=== PATIENT | male | born 1945 | race Caucasian/White ===

== ENCOUNTER 2017-01-03 00:19 | Day surgery (SDC) | payer MEDICARE, OTHER ==
[~2017-01-03] VITALS: Ht 190.5 cm; Wt 100.0 kg
[~2017-01-03 00:19] MED LIST: CELE200C PO; DEXL30CA3 PO; IBUP200C11 PO; TRAM50TA2 PO
[2017-01-03 13:46] VITALS: BP 112/75; PULSE 72; RESP 16; O2SAT 97
[2017-01-03] MEDS ORDERED: ESOM40CA41 PO (13:53)
--- NOTE | 2017-01-03 15:10 | DRSVH ---
PROCEDURE: MRI LUMBAR SPINE WITHOUT CONTRAST ([id number]) INDICATIONS: LOW BACK PAIN TECHNIQUE: Noncontrast sagittal T1 spin echo and T2 fast echo, sagittal STIR, axial T1 and T2 fast spin echo thr ough the lumbar spine. In cases with scoliosis, additional coronal T2 fast spin echo may be performe d. COMPARISON: [facility] [place], MR, LUMBAR SPINE W/O CONTRAST, 11/18, 19:57. FINDINGS: Image quality: Excellent. Alignment and Curvature: There is normal bony alignment. Bone Marrow: Marrow is of normal overall signal. Monitor wedging of L2 approximately 20-30% height loss anteriorly however this is unchanged. No acute vertebral body compression fractures. Spinal Cord: Conus medullaris terminates at the L1-L2 level. Visualized cord demonstrates normal si gnal and size. Paraspinous Soft Tissues: No paravertebral masses. Presumed on the exam and technically indetermina te Mild posterior disc bulges at T11-T12 and T12-L1. L1-L2: Mild broad-based posterior disc bulge and bilateral facet disease. Minimal canal narrowing. No foraminal stenosis L2-L3: Broad-based posterior disc bulge and bilateral facet disease, with moderate canal narrowing. M ild to moderate bilateral foraminal narrowing L3-L4: Broad-based posterior disc bulge and bilateral facet disease. Moderate canal stenosis. Moderat e left and mild right foraminal stenoses, no interval change L4-L5: Broad-based posterior disc bulge and bilateral facet disease. Mild canal narrowing. Moderate l eft and right foraminal stenosis. No gross interval change. L5-S1: Broad-based posterior disc bulge and superimposed small right central disc protrusion which ma y closely by the descending S2 nerve roots within the canal although no definite posterior displaceme nt. Multilevel facet arthropathy of the lower lumbar spine. IMPRESSION: Large bilateral renal parapelvic cysts although technically not specific in the absence of IV contras t. Further assessment with ultrasound could be performed as clinical warranted. Overall, no interval change since 12/14/14. Dictated by: Victorino Chappell M.D. on 01/03/2017 at 14:58 Approved by: Victorino Chappell M.D. on 01/03/2017 at 15:08
== END 2017-01-03 23:59 | disposition home or self-care (01) ==
LOC: SOUO 00:19
PROVIDERS: ATTEND Radiology Diagnostic Radiology
DX: M51.27 Other intervertebral disc displacement, lumbosacral region (principal); M51.37 Other intervertebral disc degeneration, lumbosacral region; N28.1 Cyst of kidney, acquired; M48.06 Spinal stenosis, lumbar region